=== PATIENT | male | born 1955 | race Caucasian/White ===

== ENCOUNTER 2019-03-24 08:16 | Outpatient (CLI) | payer OTHER, SELFPAY ==
--- NOTE | ~2019-03-24 | US_ITS ---
EXAMINATION: US right upper quadrant DATE: 03/24/2019 09:09 INDICATION: Right upper quadrant pain TECHNIQUE: Multiple grayscale and Doppler ultrasound images of the abdomen were obtained. COMPARISON: None available FINDINGS: The head and and body of the pancreas are normal. The pancreatic tail is obscured by bowel gas. The liver is normal with normal echogenicity and echotexture. There is nodularity of the liver s urface. Normal hepatopetal flow in the main portal vein. The gallbladder is normal with no abnormal w all thickening, pericholecystic fluid or stones. The normal common bile duct measures 4 mm. There was no sonographic Briggs sign. IMPRESSION: 1. Liver surface nodularity, consistent with history chronic hepatitis. Reviewed, dictated and finalized at location A. ROOM ATTENDANT
== END 2019-03-24 08:17 | disposition home or self-care (01) ==
PROVIDERS: Family Provider Internal Medicine Gastroenterology; PCP Internal Medicine Infectious Disease; Visit Provider Internal Medicine Infectious Disease
DX: B18.2 Chronic viral hepatitis C (principal)
CPT/HCPCS: 76705

== ENCOUNTER 2020-08-21 09:40 | Outpatient (CLI) | payer OTHER, SELFPAY ==
--- NOTE | 2020-08-21 11:30 | NEURO_ITS ---
Impression: # Complains of right anterior thigh numbness. # Absent right anterior femoral cutaneous nerve response. # Normal nerve conduction study otherwise. # Normal needle/EMG exam. Nerve Conduction Studies Anti Sensory Summary Table Stim Site NR Peak (ms) P-T Amp (?V) Site1 Site2 Delta-P (ms) Dist (cm) Sonu (m/s) Left Lat Femoral Cutan Anti Sensory (Lateral Thigh) ASIS 4.5 19.2 ASIS Lateral Thigh 4.5 12.0 27 Right Lat Femoral Cutan Anti Sensory (Lateral Thigh) NO RESPONSE ASIS NR 4.5 27.3 ASIS Lateral Thigh 4.5 12.0 27 Left Sup Fibular Anti Sensory (Ant Lat Mall) 14 cm 3.1 17.7 14 cm Ant Lat Mall 3.1 16.0 52 Right Sup Fibular Anti Sensory (Ant Lat Mall) 14 cm 3.2 22.9 14 cm Ant Lat Mall 3.2 16.0 50 Left Sural Anti Sensory (Lat Mall) Calf 3.7 25.4 Calf Lat Mall 3.7 16.0 43 Right Sural Anti Sensory (Lat Mall) Calf 3.7 38.9 Calf Lat Mall 3.7 16.0 43 Motor Summary Table Stim Site NR Onset (ms) O-P Amp (mV) Site1 Site2 Delta-0 (ms) Dist (cm) Sonu (m/s) Left Peroneal Motor (Vastus Med) Ankle 4.8 2.8 Popit Ankle 8.1 37.0 46 Popit 12.9 2.2 Right Peroneal Motor (Vastus Med) Ankle 4.3 4.7 Popit Ankle 6.7 34.0 51 Popit 11.0 4.3 Left Tibial Motor (Abd Castillo Brev) Ankle 4.1 3.4 Knee Ankle 8.8 38.0 43 Knee 12.9 2.5 Right Tibial Motor (Abd Castillo Brev) Ankle 4.1 4.8 Knee Ankle 8.2 38.0 46 Knee 12.3 5.3 F Wave Studies NR F-Lat (ms) L-R F-Lat (ms) Left Peroneal (Mrkrs) (EDB) 48.15 1.42 Right Peroneal (Mrkrs) (EDB) 49.57 1.42 Left Tibial (Mrkrs) (Abd Hallucis) 47.21 0.10 Right Tibial (Mrkrs) (Abd Hallucis) 47.11 0.10 EMG Side Muscle Nerve Root Ins Act Fibs Amp Dur Recrt Comment Right AntTibialis Dp Br Fibular L4-5 Nml Nml Nml Nml Nml Right Gastroc Tibial S1-2 Nml Nml Nml Nml Nml Right Fibularis Long Sup Br Fibular L5-S1 Nml Nml Nml Nml Nml Right Flex Dig Long Tibial L5-S2 Nml Nml Nml Nml Nml Right Ext Dig Brev Dp Br Fibular L5, S1 Nml Nml Nml Nml Nml Left AntTibialis Dp Br Fibular L4-5 Nml Nml Nml Nml Nml Left Gastroc Tibial S1-2 Nml Nml Nml Nml Nml Left Fibularis Long Sup Br Fibular L5-S1 Nml Nml Nml Nml Nml Left Flex Dig Long Tibial L5-S2 Nml Nml Nml Nml Nml Left Ext Dig Brev Dp Br Fibular L5, S1 Nml Nml Nml Nml Nml Right QuadratusFem QuadFemoris L4-5, S1 Nml Nml Nml Nml Nml MTDD
== END 2020-08-21 09:41 | disposition home or self-care (01) ==
LOC: ANHNEURO 09:42
PROVIDERS: PCP Internal Medicine Infectious Disease; Visit Provider Internal Medicine Infectious Disease
DX: G62.9 Polyneuropathy, unspecified (principal)
CPT/HCPCS: 95886; 95911

== ENCOUNTER 2020-08-24 10:18 | Outpatient (CLI) | payer OTHER, SELFPAY | END 2020-08-24 10:19 | disposition home or self-care (01) | LOC: ANHAUDIO 10:20 | PROVIDERS: PCP Internal Medicine Infectious Disease; Visit Provider Internal Medicine Infectious Disease | DX: H90.3 Sensorineural hearing loss, bilateral (principal) | CPT/HCPCS: 92557; 92567 ==

== ENCOUNTER 2020-11-20 10:54 | Outpatient (RCR) | payer OTHER, SELFPAY | END 2020-11-20 23:59 | disposition home or self-care (01) | LOC: ANHAUDIO 10:54 | PROVIDERS: PCP Internal Medicine Infectious Disease; Visit Provider Internal Medicine Infectious Disease | DX: Z46.1 Encounter for fitting and adjustment of hearing aid (principal) | CPT/HCPCS: V5160; V5261; V5264 ==

== ENCOUNTER 2024-02-03 14:14 | Outpatient (CLI) | payer MEDICARE, MEDICAID, SELFPAY ==
--- NOTE | ~2024-02-03 | CT_ITS ---
EXAMINATION: CT lung screening DATE: 02/03/2024 14:41 INDICATION: Nicotine dependence TECHNIQUE: Computed tomography (CT) of the chest was performed without intravenous contrast. Addition al 3D reconstructions utilizing coronal maximum intensity projection (MIP) were performed. Automated exposure control and iterative reconstruction technique were employed. The dose-length product was 11 8.38 mGy-cm. COMPARISON: 03/10/2019 FINDINGS: Mild biapical pleural-parenchymal scarring. There is additional unchanged mild pleural parenchymal sc arring along the basilar lingula and anterobasal left lower lobe. Small calcified nodules at the ling marta consistent with old granulomatous disease. No suspicious noncalcified pulmonary nodules, pneumoni a, pulmonary edema or pleural effusion. Heart size is normal. Atherosclerotic coronary artery calcifi c location. No pericardial effusion. Aortic valve calcification. Thoracic aorta is normal in caliber. No pathologically enlarged thoracic lymphadenopathy. Moderate-sized sliding-type hiatal hernia. Mild thoracic spondylosis. IMPRESSION: 1. Lung-RADS category 1: Negative. Continue annual screening with noncontrast low-dose chest CT in 12 months. 2. Moderate-sized sliding-type hiatal hernia. Reviewed, dictated and finalized at location A. TEACHER IMPRESSION: 1. Lung-RADS category 1: Negative. Continue annual screening with noncontrast l ow-dose chest CT in 12 months. 2. Moderate-sized sliding-type hiatal hernia.
== END 2024-02-03 14:15 | disposition home or self-care (01) ==
PROVIDERS: PCP Internal Medicine Infectious Disease; Visit Provider Internal Medicine Infectious Disease
DX: Z12.2 Encounter for screening for malignant neoplasm of respiratory organs (principal); Z87.891 Personal history of nicotine dependence
CPT/HCPCS: 71271

== ENCOUNTER 2025-01-25 11:44 | Outpatient (CLI) | payer MEDICARE, MEDICAID, SELFPAY ==
--- NOTE | ~2025-01-25 | XR_ITS ---
EXAMINATION: XR chest 2V, 01/25/2025 11:[address] HISTORY: Cough HX EMPHYSEMA COMPARISON: No comparisons available. Technique: 2 views obtained. Findings: Small left retrocardiac infiltrate. No pneumothorax. Heart is normal size. Moderate hiatal hernia. Bony thorax no acute abnormality. Impression: Small left lower lobe pneumonia Reviewed, dictated and finalized at location . WAY MAINTAINER Impression: Small left lower lobe pneumonia
--- NOTE | ~2025-01-25 | US_ITS ---
EXAMINATION: US renal BI, 01/25/2025 11:47 [employer]ADD[employer] BUGGY OPERATOR HISTORY: Chronic kidney dz Comparison: None Technique: Urena-scale and color Doppler images were obtained. Findings: KIDNEYS: Renal cortices intact, no solid masses, cysts or calculi, no hydronephrosis. Right Kidney: Right kidney 10.4 x 4.3 x 4.7 cm, normal. Left Kidney: Left kidney 10.4 x 5.1 x 5.4 cm, normal Bladder: The bladder is unremarkable. . Impression: No acute abnormality. Reviewed, dictated and finalized at location P. DDLE BUGGY OPERATOR Impression: No acute abnormality.
== END 2025-01-25 11:45 | disposition home or self-care (01) ==
PROVIDERS: PCP Internal Medicine Nephrology; Visit Provider Internal Medicine Nephrology
DX: N18.2 Chronic kidney disease, stage 2 (mild) (principal); E11.00 Type 2 diabetes mellitus with hyperosmolarity without nonketotic hyperglycemic-hyperosmolar coma (NKHHC); E78.2 Mixed hyperlipidemia; J41.8 Mixed simple and mucopurulent chronic bronchitis; J41.0 Simple chronic bronchitis; N40.0 Benign prostatic hyperplasia without lower urinary tract symptoms; R80.8 Other proteinuria; J18.9 Pneumonia, unspecified organism
CPT/HCPCS: 71046; 76770